=== PATIENT | female | born 1955 | race Asian ===

== ENCOUNTER 2024-05-23 10:46 | Outpatient (REF) | payer MEDICARE, SELFPAY ==
--- OUTSIDE RECORDS SUMMARY | 2024-05-23 12:54 | XMS_ITS | Clinical Summary ---
Author Organization [facility] Address [address] [place] [address] Care Team Providers Care Top Coater Name Role Phone Mary Escobedo MD Primary [...] Overview (03/31/2024): infiltrating carcinoma of right breast(T1cN0), ER/[place] positive HER-2/emmanuel negative, low-grade luminal A carcinoma [...] Surgery Date Site/Laterality Comments COLONOSCOPY 05/11/2012 PROCEDURE: [place] COLONOSCOPY FLX DX W/COLLJ SPEC WHEN PFRMD; [...] * Annual BMP Blood Test (12/19/2020) Pathologist [facility] Annual BMP Blood Test Abstracted Historical [...] should be classified as having osteoporosis. [facility] Department of Internal Medicine recommends using National [...] David should beclassified as having osteoporosis. [facility] Department of Internal Medicine recommendsusing National Osteoporosis [...] Resu lt * Hepatitis C Screening (11/29/2012) [facility] Hepatitis C Screening Abstracted Historical Provider HEALTH MAINTENANCE Final Result from Last 3 Months or Most Recently Relevant to Health Maintenance Care Teams Top Coater Relationship Specialty Start Date End Date Mary Escobedo MD [address] [place], [place] PCP - General Internal Medicine 12/15/21
[2024-05-23 13:54] LABS: Influenza A PCR POSITIVE (Negative); Influenza B PCR NEGATIVE (Negative); Resp Syncy Virus RNA Qual PCR NEGATIVE (Negative); SARS COV2 PCR INHOUSE NEGATIVE (Negative)
== END 2024-05-23 10:47 | disposition home or self-care (01) ==
LOC: HO.LAB 10:46
PROVIDERS: Physician Assistant; PCP Family Medicine
DX: J06.9 Acute upper respiratory infection, unspecified (principal)
CPT/HCPCS: 0241U; 99202

== ENCOUNTER 2024-05-23 10:46 | Outpatient (AMB) | payer MEDICARE, SELFPAY ==
--- NOTE | 2024-05-23 11:14 | MHC.OFFWIV ---
Intake Vital Signs 05/23/24 11:19 Weight 106 lb BP 150/100 H Blood Pressure Location Lt brachial Position Sitting Pulse 122 H Pulse Source Pulse Oximeter Temp 99.4 F Temp Source Oral Pulse Oximetry (%) 97 Oxygen Delivery Method Room Air Intake Visit Reasons: [employer]IEF Chills, Cough, Fever, Headache Intake Note: Patient here for cough, fever,SOB and headaches that has been present for about 3 days. Patient Tobacco Use Status: Never used Tobacco Allergies No Known Allergies Allergy (Verified 05/23/24 11:20) Do you need a note to return to daycare/school/sports/work: No HPI HPI Comments History of Present Illness Details History - The patient is a 68-year-old female presenting wiht her with fever and shortness of breath for three days. Has not checked with a thermometer but has felt warm. - She reports dizziness, headache, coughing, and sore throat associated with these symptoms. - The patient has a history of bacterial pneumonia one year ago with similar symptoms and a family history of pneumonia. - She denies personal or family hx of PE or DVT, denies any recent long flights, sedentary periods or active cancer. - Denies nausea, vomiting or diarrhea and has been eating, drinking. - Has not taken any OTC meds - Has a pulse oximeter at home Physical Exam General: Cooperative, healthy appearing, comfortable and no acute distress Orientation/consciousness: Patient oriented x3 Limitations: No limitations Head: Normal to inspection Ears: Hearing grossly normal bilaterally, external ears normal and TM's normal bilaterally Nose: Normal external nose present, Normal nares present and No nasal discharge present Face and sinus: Normal facial exam and Yes sinuses nontender Mouth: Normal oral and palatal mucosa present and moist mucous membranes Throat: Yes tonsils normal, Yes uvula midline. Posterior oropharynx erythema Eyes: Appearance normal, both eyes and all related structures Neck: Normal visual inspection Respiratory: Clear to auscultation bilaterally. Normal respiratory effort, able to speak in complete sentences, Actively coughing, no respiratory distress, not tachypneic, no tripod positioning and no use of accessory muscles Cardiovascular: Regular rate and rhythm. Skin: No rashes or lesions noted Neuro: Patient oriented x3 Extremities: Normal to inspection and Yes no clubbing, cyanosis or edema, negative Homans bilaterally Kyr[place]z video cook specialty foreign food available for this visit. PFS Social History Patient Tobacco Use Status: Never used Tobacco Review of Systems Const All systems reviewed & are unremarkable except as noted in HPI and below Physical Exam Vital Signs: Last Vital Signs Temp 99.4 F 05/23/24 11:19 Pulse 122 H 05/23/24 11:19 BP 150/100 H 05/23/24 11:19 Pulse Ox 97 05/23/24 11:19 Oxygen Delivery Method Room Air 05/23/24 11:19 Assessment & Plan Assessment & Plan (1) URI, acute: Code(s): J06.9 - Acute upper respiratory infection, unspecified Plan: The patient underwent laboratory testing for influenza, COVID-19, and RSV, with expectations to receive results within one to two days. The current evaluation leans toward a viral etiology due to symptomatology. To address dehydration and potential elevated heart rate, I stress increased fluid consumption, particularly focusing on electrolyte-enriched solutions. For fever and related tachycardia, acetaminophen is suggested. Recommended monitoring HR and if she increases her fluids and it does not lower to below 100BPM, she needs to go to the ED for further evaluation and IV fluids. Tessalon Perles are prescribed to alleviate nocturnal cough, and an inhaler is provided to assist with perceived dyspnea, acknowledging the patient's family asthma history. I recommend ongoing home monitoring of heart rate and emphasize the need for emergency evaluation if symptoms deteriorate or remain uncontrolled. I detail the limitations of Tamiflu's therapeutic window and prioritize addressing symptoms using [id number] methods unless test results indicate otherwise. Patient was informed and verbally consented to the use of an ambient scribe for clinic note documentation during this visit Orders: Orders SARS-CoV2/FLU/RSV Today J06.9 - Acute upper respiratory infection, unspecified Medications: New benzonatate 200 mg PO TID PRN 14 caps 0RF cough albuterol sulfate 90 mcg/actuation 2 puffs inhalation Q6H PRN 8.5 grams 0RF shortness of breath or wheezing or cough Coding Level of Care Code New Pt Level 4 (97239) Diagnoses URI, acute J06.9
[2024-05-23 11:19] VITALS: BP 150/100; PULSE 122; TEMP 37.4; O2SAT 97
--- OUTSIDE RECORDS SUMMARY | 2024-05-23 11:52 | XMS_ITS | Clinical Summary ---
[facility] Address [address] [place] [address] Care Team Providers Care Tie Puller Name Role Phone Mary Escobedo MD Primary Care Pr ovider Allergies No known active allergies Medications calcium carbonate-vitam in D3 600 mg-5 mcg (200 unit) per tablet Take 600 mg by mouth 2 times daily. 09/11/2011 Active losartan (COZAAR) 25 mg tablet Take 1.5 Tablets by mouth daily. 08/04/2021 Active Active Problems Problem Noted Date Diagnosed Date HTN (hypertension), benign 03/31/2024 Osteoporosis 03/31/2024 Overview (03/31/2024): T: -2.8 high risk, already on Fosamax Malignant neoplasm of right female breast 2015 Breast cancer 12/11/2013 Overview (03/31/2024): infiltrating carcinoma of right breast(T1cN0), ER/[place] positive HER-2/emmanuel negative, low-grade luminal A carcinoma so decision was made to go with radiation rather than adjuvant chemotherapy(patient was reluctant chemotherapy)- Dr. Wayne Advised 10 yr therapy starting 04/2014 Immunizations Name Administration Dates Next Due Influenza Quadravalent, MDCK , 0.5ml, preservative free (Flucelvax) 6mo and older 12/19/2020 Influenza Quadravalent, MDCK , 0.5ml, with preservative (Flucelvax) 6mo and older 01/20/2018,01/22/2017 Influenza trivalent, with preservative (Fluzone; Afluria) 6mo and older 03/09/2016,01/02/2015,01/31/2014,2012,01/15/2012 Tdap Tetanus diptheria acell ular pertussis (Boostrix; Adacel) 7yo and older 09/15/2011 Surgical History Surgery Date Site/Laterality Comments COLONOSCOPY 05/11/2012 PROCEDURE: [place] COLONOSCOPY FLX DX W/COLLJ SPEC WHEN PFRMD; COMMENT: normal BREAST BIOPSY PROCEDURE: BX BREAST; PERC NEEDLE CORE W/IMAG GUID; COMMENT: rt. breast bx.-12/17 ca BREAST LUMPECTOMY 2013 Right PROCEDURE: HISTORICAL BREAST LUMPECTOMY; COMMENT: right breast cancer Medical History Medical History Date Comments HTN (hypertension), benign DX:HT N (hypertension), benign Osteoporosis DX:Osteoporosis Breast cancer (CMS/HCC) 12/11/2013 DX:Breas t cancer (HCC) Family History Medical History Relation Name Comments Hypertension Mother Breast cancer Neg Hx Colon cancer Neg Hx Ovarian cancer Neg Hx Relation Name Status Comments Father Mother Alive Social History Tobacco Use Types Packs/Day Years Used Date Smoking Tobacco: Never Smokeless Tobacco: Never Alcohol Use Standard Drinks/Week Comments No 0 (1 standard drink = 0.6 oz pur e alcohol) Comments Unknown Sex and Gender Information Value Date Recorded Sex Assigned at Not on file Legal Sex Female 10:17 PM EST Gender Identity Not on file Sexual Orientation Not on file Obstetrics History Plan of Treatment Health Maintenance Due Date Last Done Comments COVID-19 Vaccine (#1) 1961 Pneumococcal Vaccine: 50+ Years (1 of 2 - PCV) 06/11/1975 Zoster Vaccines (1 of 2) 06/11/1975 DTaP,Tdap,and Td Vaccines (2 - Td or Tdap) 09/14/2021 09/15/2011 Colorectal Cancer Screening: Colonoscopy 03/14/2022 Depression Screening 03/14/2022 Falls Risk Assessment 03/14/2022 Hypertension/CHF/CAD Annual BMP Blood Test 03/14/2022 12/19/2020 Osteoporosis Screening (Bone Density Screening) 03/14/2022 11/17/2016 Social Influencers of Health Screening 03/14/2022 Breast Cancer Screening 10/24/2023 10/24/19, 10/23/2021, 10/17/2020, Additional history exists Influenza Vaccine (#1) 2023 , 01/20/2018, 01/22/2017, Additional history exists Cholesterol Screening (Lipid Panel) 05/28/2025 05/28/2020 RSV Immunization Patients 60+ Years Old (1 - 1-dose 75+ series) 06/11/2031 Hepatitis C Screening Completed 11/29/2012 HIB Vaccines Aged Out No longer eligi ble based on patient's age to complete this topic HPV Vaccines Aged Out No longer eligi ble based on patient's age to complete this topic Hepatitis A Vaccines Aged Out No long er eligible based on patient's age to complete this topic Hepatitis B Vaccines Aged Out No long er eligible based on patient's age to complete this topic IPV Vaccines Aged Out No longer eligi ble based on patient's age to complete this topic MMR Vaccines Aged Out No longer eligi ble based on patient's age to complete this topic Meningococcal ACWY Vaccine Aged Out N o longer eligible based on patient's age to complete this topic Meningococcal B Vacine Aged Out No lo nger eligible based on patient's age to complete this topic RSV Immunization Patients Under 20 months Aged Out No longer eligible based on patient's age to complete this topic Varicella Vaccines Aged Out No longer eligible based on patient's age to complete this topic Procedures Procedure Name Priority Date/Time Associated Diagnosis Comments SCREENING MAMMOGRAPHY BI 2-VIEW BREAST INC CAD Routine 10/23/2021 3:38 PM EDT Encounter for screening mammogram for malignant neoplasm of breast Personal history of malignant neoplasm of breast ANNUAL BMP BLOOD TEST Routine 12/19/2020 LIPID PANEL Routine 05/28/2020 DXA BONE DENSITY STUDY 1+ SITS AXIAL SKEL Routine 11/17/2016 1:40 PM EDT Age-related osteoporosis without current pathological fracture HEPATITIS C SCREENING Routine 11/29/2012 from Last 3 Months or Most Recently Relevant to Health Maintenance Results * SCREENING MAMMOGRAPHY BI 2-VIEW BREAST INC CAD (10/23/2021 3:38 PM EDT) Anatomical Region Laterality Modality Radiographic Izabela ging 10/17/2020 4:19 PM EDT Narrative 10/24/2021 3:35 PM EDT This is a summary report. The complete report is available in the patient's medical record. If you cannot access the medical record, please contact the sending organization for a detailed fax or copy. BILATERAL 2D and 3D DIGITAL SCREENING MAMMOGRAM History: Routine screening. ??No current breast complaints. Comparison: Multiple priors dating back to 10/10/2018 Technique: Bilateral full-field digital 2D and 3D mammography was performed using standard CC and MLO projections CAD was used to evaluate this mammogram. Findings: Density: ?? The breasts are heterogeneously dense which may obscure small masses-C RIGHT: No suspicious masses, groups of microcalcification or areas of architectural distortion identified. Stable typically benign parenchymal asymmetries LEFT: No suspicious masses, groups of microcalcifications or areas of architectural distortion identified. Stable typically benign parenchymal asymmetries IMPRESSION: : 1. ??No mammographic evidence of malignancy. BI-RADS Category 2 benign findings Recommendation: Routine annual screening mammography is recommended Procedure Note Leah Ambriz MD - 03/24/2022 This is a summary report. The complete report is available in thepatient's medical record. If you cannot access the medical record, pleasecontact the sending organization for a detailed fax or copy. BILATERAL 2D and 3D DIGITAL SCREENING MAMMOGRAM History: Routine screening. No current breast complaints. Comparison: Multiple priors dating back to 10/10/2018 Technique: Bilateral full-field digital 2D and 3D mammography wasperformed using standard CC and MLO projections CAD was used to evaluate this mammogram. Findings: Density: The breasts are heterogeneously dense which may obscure smallmasses-C RIGHT: No suspicious masses, groups of microcalcification or areas ofarchitectural distortion identified. Stable typically benign parenchymalasymmetries LEFT: No suspicious masses, groups of microcalcifications or areas ofarchitectural distortion identified. Stable typically benign parenchymalasymmetries IMPRESSION: : 1. No mammographic evidence of malignancy. BI-RADS Category 2 benign findings Recommendation: Routine annual screening mammography is recommended us Radiology Results Historical MD IMG XR PROCEDURE S Final Result * Annual BMP Blood Test (12/19/2020) Pathologist [facility] Annual BMP Blood Test Abstracted Historical Provider HEALTH MAINTENANCE Final Result * (ABNORMAL) Lipid panel (05/28/2020) LDL/HDL Ratio 3 0 - 4 Triglycerides 259(A) 0 - 150 mg/dL Cholesterol 200 0 - 200 mg/dL HDL 67 >=40 mg/dL LDL Cholesterol 82 0 - 100 mg/dL Blood Venous blood specimen / Unknown Historical Provider LAB BLOOD ORDERABLES Yesy l Result * DXA BONE DENSITY STUDY 1+ SITS AXIAL SKEL (11/17/2016 1:40 PM EDT) Anatomical Region Laterality Modality Bone Densitometr y 11/03/2016 3:20 PM EDT Narrative 11/17/2016 1:41 PM EDT BONE DENSITY ? Lumbar Spine T-score is -1.9 ?? (SD relative to 20-29 y/o adult) Z-score is -0.4 ??(SD relative to age matched peers) This is consistent with osteopenia by criteria defined by the WHO. Left Hip T-score is -3.3 Z-score is -2.0 This is consistent with osteoporosis by criteria defined by the WHO. Comparison exam(s): no statistically significant change in the bone density of the lumbar spine or hip when compared to most recent bone density examination ?? Confidence level is +/-95%. Impression: Based on the World Health Organization criteria, Mag David should be classified as having osteoporosis. The [facility] Department of Internal Medicine recommends using National Osteoporosis Foundation (NOF) guidelines in treatment decisions related to osteoporosis. NOF guidelines suggest considering treatment for postmenopausal women and men aged 50 or older presenting with the following: History of hip or vertebral fracture. T-score less than or equal to -2.5 (DXA) at the femoral neck, total hip, or spine, after appropriate evaluation to exclude secondary causes. Low bone mass (T-score between -1.0 and -2.5 at the femoral neck or spine) AND a 10-year probability of a hip fracture greater than or equal to 3% OR a 10-year probability of a major osteoporosis-related fracture greater than or equal to 20% based on the [place]-adapted WHO algorithm Please note that all treatment decisions require clinical judgment and consideration of individual patient factors, including patient preferences, co-morbidities, previous drug use, risk factors not captured in the FRAX model (e.g., frailty, falls, vitamin D deficiency, increased bone turnover, interval significant decline in bone density) and possible under- or over-estimation of fracture risk by FRAX. Procedure Note Ryan Jett MD - 05/07/2023 BONE DENSITY Lumbar Spine T-score is -1.9 (SD relative to 20-29 y/o adult) Z-score is -0.4 (SD relative to age matched peers) This is consistent with osteopenia by criteria defined by the WHO. Left Hip T-score is -3.3 Z-score is -2.0 This is consistent with osteoporosis by criteria defined by the WHO. Comparison exam(s): no statistically significant change in the bonedensity of the lumbar spine or hip when compared to most recent bonedensity examination Confidence level is +/-95%. Impression: Based on the World Health Organization criteria, Mag David should beclassified as having osteoporosis. The [facility] Department of Internal Medicine recommendsusing National Osteoporosis Foundation (NOF) guidelines in treatmentdecisions related to osteoporosis. NOF guidelines suggest consideringtreatment for postmenopausal women and men aged 50 or older presentingwith the following: History of hip or vertebral fracture. T-score less than or equal to -2.5 (DXA) at the femoral neck, total hip,or spine, after appropriate evaluation to exclude secondary causes. Low bone mass (T-score between -1.0 and -2.5 at the femoral neck or spine)AND a 10-year probability of a hip fracture greater than or equal to 3% ORa 10-year probability of a major osteoporosis-related fracture greaterthan or equal to 20% based on the [place]-adapted WHO algorithm Please note that all treatment decisions require clinical judgment andconsideration of individual patient factors, including patientpreferences, co-morbidities, previous drug use, risk factors not capturedin the FRAX model (e.g., frailty, falls, vitamin D deficiency, increasedbone turnover, interval significant decline in bone density) and possibleunder- or over-estimation of fracture risk by FRAX. Andre Hawthorne MD IMG DXA PROCEDURES Final Resu lt * Hepatitis C Screening (11/29/2012) [facility] Hepatitis C Screening Abstracted Historical Provider HEALTH MAINTENANCE Final Result from Last 3 Months or Most Recently Relevant to Health Maintenance Care Teams Tie Puller Relationship Specialty Start Date End Date Mary Escobedo MD [address] [place], [place] PCP - General Internal Medicine 12/15/21
== END 2024-05-23 11:45 | disposition home or self-care (01) ==
PROVIDERS: PCP Family Medicine; Visit Provider Physician Assistant
DX: J06.9 Acute upper respiratory infection, unspecified (principal)

== ENCOUNTER 2024-05-29 08:03 | Outpatient (AMB) | payer MEDICARE, SELFPAY ==
--- OUTSIDE RECORDS SUMMARY | 2024-05-29 08:07 | XMS_ITS | Encounter Summary ---
Author Organization [facility] Address [address] [place] [address] Care Team Providers Care Svp Research & Ebusiness Operations Name Role Phone Andre Hawthorne MD Primary Care Provider Mary Cisneros MD Primary Care Provider + Reason for Visit * Reason Onset Date Comments Testing 04/02/2017 CT chest Encounter Details Date Type Department Care Team Description 04/02/2017 Telephone Adult Medicine [address] [address] Alena Busby APRN Testing (CT chest) Social History Tobacco Use Types Packs/Day Years Used Date Smoking Tobacco: Never Smokeless Tobacco: Never Alcohol Use Standard Drinks/Week Comments No 0 (1 standard drink = 0.6 oz pur e alcohol) Sex Assigned at Date Recorded Not on file Job Start Date Occupation Industry Not on file Not on file Not on file documented as of this encounter Miscellaneous Notes * Telephone Encounter - Alena Busby APRN - 04/07/2017 1:33 PM EST Called [employer] and spoke with physician reviewer, advised them that a nodular density was seen on the CXR and he advised me they would fax approval for the imaging to our office- he did not have an authorization code to provide me over the phone * Telephone Encounter - Gracie Hernandez - 04/02/2017 5:06 PM EST All clinicals were sent to [facility] with the request. In order to change the denial a peer to peer must be done. * Telephone Encounter - Alena QiSKYLAR christie - 04/02/2017 10:21 AM EST A chest xray was ordered and was abnormal. Can you please advise if [facility] was aware that this imaging was already done. Thank you. * Telephone Encounter - Irvin Gotti - 04/02/2017 8:54 AM EST Insurance denied CT. States based on [facility] Chest Imaging Guidelines, we are unable to approve therequested procedure. Guidelines support a chest x-ray in the initial evaluation of non-cardiac chest pain. If results of the initial chest x-ray are normal, a detailed assessment for the evaluation of other possible causes of pain is supported prior to computed tomography (CT) of the chest with contrast (CPT?? 15547) or CT Angiography (CTA) chest with contrast (CPT?? 37120). This assessment wouldinclude: 1) cardiac (ECG, echocardiogram, stress test), 2) gastrointestinal (trial of anti-reflux medication, possible upper endoscopy, pH probe, esophageal manometry), and 3) pulmonary (PFT???s). The clinical information does not meet these criteria and, therefore, the requested advanced imaging of the chest is not indicated at this time. For peer to peer reconsideration, please call option #4, case # is [id number]. Pleaseadvise, thank you. Prior Irvin Auth Dept./[employer] Photo Inspector [phone] documented in this encounter Plan of Treatment Not on file documented as of this encounter Visit Diagnoses Not on filedocumented in this encounter Care Teams Svp Research [employer] Ebusiness Operations Relationship Specialty Start Date End Date Andre Hawthorne MD PCP - General Internal Medicine 09/04/15 12/14/21 Mary Escobedo MD [address] [place] [id number] PCP - General Internal Medicine 12/15/21 documented as of this encounter
--- OUTSIDE RECORDS SUMMARY | 2024-05-29 08:07 | XMS_ITS | Encounter Summary ---
Author Organization [facility] Address [address] [place] [address] Care Team Providers Care Engineering Supplies Sales Name Role Phone Andre Hawthorne MD Primary Care Provider Dakota Leger MD Primary Care Provider Unavail able Andre Hawthorne MD Primary Care Provider Mary Cisneros MD Primary Care Provider + Encounter Details Date Type Department Care Team Description 04/12/2014 Instructional Technology Director Report Medical Records [address] [place] [address] Sheryl Gardner Social History Tobacco Use Types Packs/Day Years Used Date Smoking Tobacco: Never Alcohol Use Standard Drinks/Week Comments No 0 (1 standard drink = 0.6 oz pur e alcohol) Sex Assigned at Date Recorded Not on file Job Start Date Occupation Industry Not on file Not on file Not on file documented as of this encounter Plan of Treatment Not on file documented as of this encounter Visit Diagnoses Not on filedocumented in this encounter Care Teams Engineering Supplies Sales Relationship Specialty Start Date End Date Andre Hawthorne MD PCP - General Internal Medicine 07/23/11 07/02/15 Dakota Carbone MD PCP - General Internal Medicine 07/03/15 09/03/15 Andre Hawthorne MD PCP - General Internal Medicine 09/04/15 12/14/21 Mary Escobedo MD [address] [place] [address] PCP - General Internal Medicine 12/15/21 documented as of this encounter
--- OUTSIDE RECORDS SUMMARY | 2024-05-29 08:07 | XMS_ITS | Encounter Summary ---
Author Organization [facility] Address [address] [place] [address] Care Team Providers Care Levers Lace Machine Operator Name Role Phone Andre Hawthorne MD Primary Care Provider Dakota Leger MD Primary Care Provider Unavail able Andre Hawthorne MD Primary Care Provider Mary Cisneros MD Primary Care Provider + Encounter Details Date Type Department Care Team Description 10/11/2014 Anesthesia Associate Report Medical Records [address] [place] [address] Sheryl Gardner Social History Tobacco Use Types [...] on filedocumented in this encounter Care Teams Levers Lace Machine Operator Relationship Specialty Start Date End Date Andre Hawthorne MD PCP - General Internal Medicine 07/23/11 07/02/15 Dakota Carbone MD PCP - General Internal Medicine 07/03/15 09/03/15 Andre Hawthorne MD PCP - General Internal Medicine 09/04/15 12/14/21 Mary Escobedo MD [address] [place] [address] PCP - General Internal Medicine 12/15/21 documented as of this encounter
--- OUTSIDE RECORDS SUMMARY | 2024-05-29 08:07 | XMS_ITS | Encounter Summary ---
Author Organization [facility] Address [address] [place] [address] Care Team Providers Care Promotions Manager Name Role Phone Andre Hawthorne MD Primary Care Provider Mary Cisneros MD Primary Care Provider + Encounter Details Date Type Department Care Team Description 08/19/2020 Telephone Cardio PVCA Diag Testing [address] [place] [id number] Andre Hawthorne MD Social History Tobacco Use Types Packs/Day Years Used Date Smoking Tobacco: Never Smokeless Tobacco: Never Alcohol Use Standard Drinks/Week Comments No 0 (1 standard drink = 0.6 oz pur e alcohol) Sex Assigned at Date Recorded Not on file Job Start Date Occupation Industry Not on file Not on file Not on file COVID-19 Exposure Response Date Recorded In the last month, have you been in contact with someone who was confirmed or suspected to have Coronavirus / COVID-19? No / Unsure 08/01/2020 3:36 PM EDT documented as of this encounter Miscellaneous Notes * Telephone Encounter - Andre Hawthorne - 08/19/2020 1:05 PM EDT Stress ECHO ordered * Telephone Encounter - Andria Valdez - 08/19/2020 12:31 PM EDT [facility] has received the order for [place] to have an Exercise Stress Test. However, one of our APPs has reviewed the information and has recommended that there be imaging along with this test. They have recommended a STRESS ECHOCARDIOGRAM instead of the ETT. If you are in agreement, please place a new order for scheduling. Thank you! documented in this encounter Plan of Treatment Not on file documented as of this encounter Results * STRESS ECHOCARDIOGRAM WITH CONTRAST IF CLINICALLY INDICATED (10/01/2020) Andre Hawthorne MD CARDIOLOGY PVCA documented in this encounter Visit Diagnoses Diagnosis Chest pain, unspecified type- Primary documented in this encounter Care Teams Promotions Manager Relationship Specialty Start Date End Date Andre Hawthorne MD PCP - General Internal Medicine 09/04/15 12/14/21 Mary Escobedo MD [address] [place] [id number] PCP - General Internal Medicine 12/15/21 documented as of this encounter
--- OUTSIDE RECORDS SUMMARY | 2024-05-29 08:07 | XMS_ITS | Clinical Summary ---
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 [facility] Department of Internal Medicine recommends using [...] David should beclassified as having osteoporosis. The [facility] Department of Internal Medicine recommendsusing National [...] Resu lt * Hepatitis C Screening (11/29/2012) [facility] Hepatitis C Screening Abstracted Historical Provider HEALTH MAINTENANCE Final Result from Last 3 Months or Most Recently Relevant to Health Maintenance Care Teams Critical Care Specialist Relationship Specialty Start Date End Date Mary Escobedo MD [address] [place], [place] PCP - General Internal Medicine 12/15/21
--- OUTSIDE RECORDS SUMMARY | 2024-05-29 08:07 | XMS_ITS | Encounter Summary ---
Author Organization [facility] Address [address] [place] [address] Care Team Providers Care Java Xml Developer Name Role Phone Andre Hawthorne MD Primary Care Provider Dakota Leger MD Primary Care Provider Unavail [facility] Andre Hawthorne MD Primary Care Provider Mary Cisneros MD Primary Care Provider + Encounter Details Date Type Department Care Team Description 12/27/2013 Hospital Medical Records [address] [place] [id number] Everton Vanegas MD [address] [place] [id number] Social History Tobacco Use Types Packs/Day Years [...] on filedocumented in this encounter Care Teams Java Xml Developer Relationship Specialty Start Date End Date Andre Hawthorne MD PCP - General Internal Medicine 07/23/11 07/02/15 Dakota Carbone MD PCP - General Internal Medicine 07/03/15 09/03/15 Andre Hawthorne MD PCP - General Internal Medicine 09/04/15 12/14/21 Mary Escobedo MD [address] [place] [id number] PCP - General Internal Medicine 12/15/21 documented as of this encounter
--- OUTSIDE RECORDS SUMMARY | 2024-05-29 08:07 | XMS_ITS | Encounter Summary ---
Author Organization [facility] Address [address] [place] [address] Care Team Providers Care Strategic Development Manager Name Role Phone Andre Hawthorne MD Primary Care Provider Mary Cisneros MD Primary Care Provider + Encounter Details Date Type Department Care Team Description 03/31/2016 Corn Cutter Operator Report Medical Records [address] [place], [place] [id number] [place] [address] Social History Tobacco Use Types Packs/Day Years [...] on filedocumented in this encounter Care Teams Strategic Development Manager Relationship Specialty Start Date End Date Andre Hawthorne MD PCP - General Internal Medicine 09/04/15 12/14/21 Mary Escobedo MD [address] [place] [address] PCP - General Internal Medicine 12/15/21 documented as of this encounter
--- OUTSIDE RECORDS SUMMARY | 2024-05-29 08:07 | XMS_ITS | Encounter Summary ---
Author Organization [facility] Address [address] [place] [address] Care Team Providers Care Needle Process Felt Goods Supervisor Name Role Phone Andre Hawthorne MD Primary Care Provider Mary Cisneros MD Primary Care Provider + Reason for Referral * EXTERNAL (Routine) - Authorized/Booked Specialty Diagnoses / Procedures Referred By Sly tejada Referred To Contact Vascular Surgery Procedures REFERRAL TO VASCULAR SURGERY Andre Hawthorne MD [address] [place] [address] Gabriel Randhawa MD [address] [facility] [address] [place] [id number] Referral ID Status Reason Start Date Expiration Date V isits Requested Visits Authorized SEE NOTE Authorized/B ooked 03/20/2016 06/19/2016 1 1 Reason for Visit * Reason Onset Date Comments Creping Machine Operator Feedback 03/19/2016 Dr. Hatfield vascula r surgery Encounter Details Date Type Department Care Team Description 03/19/2016 Telephone Adult Medicine [address] [address] Andre Hawthorne MD Creping Machine Operator Feedback (Dr. Hatfield vascular surgery) Social History Tobacco Use Types Packs/Day Years [...] encounter Miscellaneous Notes * Telephone Encounter - Effie Busby - 03/20/2016 4:14 PM EST Attempted to reach patient to let her know but got no answer. * Telephone Encounter - Andre Hawthorne - 03/20/2016 8:19 AM EST Please let pt know that her insurance is not accepted at Dr. Hatfield's office. She wanted to see him because of language difficulty * Telephone Encounter - Effie Busby - 03/19/2016 4:[address] Hawthorne, You recently placed a vascular surgery referral for patient to be seen by Dr. Hatfield for varicose veins with poor circulation . Unfortunately, Dr. Hatfield at [facility] does not take patients insurance so we can not refer her there. I have pended a new referral. Please review and sign. Thank you, Effie Referrals Department documented in this encounter Plan of Treatment Not on file documented as of this encounter Visit Diagnoses Not on filedocumented in this encounter Care Teams Needle Process Felt Goods Supervisor Relationship Specialty Start Date End Date Andre Hawthorne MD PCP - General Internal Medicine 09/04/15 12/14/21 Mary Escobedo MD [address] [place] [address] PCP - General Internal Medicine 12/15/21 documented as of this encounter
--- OUTSIDE RECORDS SUMMARY | 2024-05-29 08:07 | XMS_ITS | Encounter Summary ---
Author Organization [facility] Address [address] [place] [address] Care Team Providers Care Air Duct Mechanic Name Role Phone Andre Hawthorne MD Primary Care Provider Dakota Leger MD Primary Care Provider Unavail [facility] Andre Hawthorne MD Primary Care Provider Mary Cisneros MD Primary Care Provider + Reason for Visit * Reason Onset Date Comments refill request 05/28/2015 Encounter Details Date Type Department Care Team Description 05/28/2015 Refill Oncology [address] [place] [address] Maia Pa MD refill request Social History Tobacco Use Types Packs/Day Years [...] encounter Miscellaneous Notes * Telephone Encounter - Lizeth Doll - 05/28/2015 4:19 PM EST Patient is requesting more than 3 refills with this script. Please review. Patient would like script to be: E-PRESCRIBED/FAXED TO PHARMACY WHEN WAS THE PATIENT'S LAST APPOINTMENT IN ADULT MEDICINE? 01/02/15 WHEN WAS THE LAST TIME THE PATIENT SAW THEIR PCP? 05/01/15 Does patient have an upcoming appointment? Yes 07/03/15 (THE MEDICATION REQUESTED IS ON THE MED LIST ABOVE) All of the medications requested were on the CURRENT MEDS list Did you check the Pharmacy information above?: YES Patient wants: 30 -day supply Is this a mail order prescription request ? NO Patients current insurance carrier is: Payor: [employer] [facility] / Plan: [facility] TYPE 1 $0 [employer] [id number] / Product Type: HMO [id number] documented in this encounter Plan of Treatment Not on file documented as of this encounter Visit Diagnoses Not on filedocumented in this encounter Care Teams Air Duct Mechanic Relationship Specialty Start Date End Date Andre Hawthorne MD PCP - General Internal Medicine 07/23/11 07/02/15 Dakota Carbone MD PCP - General Internal Medicine 07/03/15 09/03/15 Andre Hawthorne MD PCP - General Internal Medicine 09/04/15 12/14/21 Mary Escobedo MD [address] [place] [id number] PCP - General Internal Medicine 12/15/21 documented as of this encounter
--- OUTSIDE RECORDS SUMMARY | 2024-05-29 08:07 | XMS_ITS | Encounter Summary ---
Author Organization [facility] Address [address] [place] [address] Care Team Providers Care Client Sales And Service Officer Name Role Phone Andre Hawthorne MD Primary Care Provider Mary Cisneros MD Primary Care Provider + Encounter Details Date Type Department Care Team Description 12/14/2016 Candy Cooker Helper Report Medical Records [address] [place] [id number] Joshua David Social History Tobacco Use Types Packs/Day Years [...] on filedocumented in this encounter Care Teams Client Sales And Service Officer Relationship Specialty Start Date End Date Andre Hawthorne MD PCP - General Internal Medicine 09/04/15 12/14/21 Mary Escobedo MD [address] [place] [address] PCP - General Internal Medicine 12/15/21 documented as of this encounter
--- NOTE | 2024-05-29 08:14 | AM.OFFWIN_ITS ---
Intake Vital Signs 05/29/24 08:15 Weight 107 lb BP 130/90 H Blood Pressure Location Rt brachial Position Sitting Pulse 86 Pulse Source Pulse Oximeter Temp 98.7 F Temp Source Oral Pulse Oximetry (%) 97 Oxygen Delivery Method Room Air Intake Visit Reasons: EP flu symptoms worse Intake Note: Patient here for headaches and SOB that has worsened since she was last seen Patient Tobacco Use Status: Never used Tobacco Allergies No Known Allergies Allergy (Verified 05/29/24 08:18) Do you need a note to return to daycare/school/sports/work: No HPI HPI Comments History of Present Illness Details History - The patient is a 68-year-old female pr esenting with worsening symptoms associated with influenza A and possible bacterial pneumonia. - Initially diagnosed with influenza A o n 05/23 in this clinic with a recent progression that includes increased phlegm production, rhonchial cough, and difficulty breathing. - Similar episodes occurred about one an d a half years ago when treated for bacterial pneumonia with Keflex. She is asking for antibiotics. - Reports a significant family history o f bacterial pneumonia, noting her father succumbed to related complications. - Continues to experience persistent low -grade fever despite the use of Tylenol for relief. - Describes generalized body pain and re duced energy as ongoing concerns. Physical Exam General: Cooperative, healthy appearing, comfortable and no acute distress Orientation/consciousness: Patient oriented x3 Limitations: No limitations Head: Normal to inspection Ears: Hearing grossly normal bilaterally, external ears normal Nose: Normal external nose present, Normal nares present and No nasal discharge present Face and sinus: Normal facial exam and Yes sinuses nontender Mouth: Normal oral and palatal mucosa present and moist mucous membranes Throat: Yes tonsils normal, Yes uvula midline. Posterior oropharynx erythema Eyes: Appearance normal, both eyes and all related structures Neck: Normal visual inspection Respiratory: Clear to auscultation bilaterally. Normal respiratory effort, able to speak in complete sentences, Actively coughing, no respiratory distress, not tachypneic, no tripod positioning and no use of accessory muscles Cardiovascular: Regular rate and rhythm. Normal S1 and S2 Skin: No rashes or lesions noted Neuro: Patient oriented x3 Extremities: Normal to inspection and Yes no clubbing, cyanosis or edema PFSH Social History Patient Tobacco Use Status: Never used Tobacco Review of Systems Const All systems reviewed & are unremarkable except as noted in HPI and below Physical Exam Vital Signs: Last Vital Signs Temp 98.7 F 05/29/24 08:15 Pulse 86 05/29/24 08:15 BP 130/90 H 05/29/24 08:15 Pulse Ox 97 05/29/24 08:15 Oxygen Delivery Method Room Air 05/29/24 08:15 Assessment & Plan Assessment & Plan (1) CAP (community acquired pneumonia): Code(s): J18.9 - Pneumonia, unspecified organism Qualifiers: Laterality: unspecified laterality Qualified Code(s): J18.9 - Pneumonia, unspecified organism Plan: The patient is advised supportive measures for influenza symptoms, including adequate hydration, rest, and fever management with Tylenol to alleviate discomfort. For suspected bacterial pneumonia, commence treatment with presc ribed Doxycycline for a duration of seven days. Additional recommendations include increased fluid intake, rest, and avoiding exacerbation factors to support recovery while monitoring symptom changes. Medications: New doxycycline hyclate 100 mg PO BID 14 tabs 0RF Coding Level of Care Code New Pt Level 3 (75646) Diagnoses Community acquired pneumonia, unspecified laterality J18.9 Laterality: unspecified laterality
[2024-05-29 08:15] VITALS: BP 130/90; PULSE 86; TEMP 37.1; O2SAT 97
== END 2024-05-29 08:59 | disposition home or self-care (01) ==
PROVIDERS: PCP Family Medicine; Visit Provider Physician Assistant
DX: J18.9 Pneumonia, unspecified organism (principal)

== ENCOUNTER → 2024-05-29 08:03 | Outpatient (BNVA) | payer MEDICARE, SELFPAY | PROVIDERS: PCP Family Medicine | DX: J18.9 Pneumonia, unspecified organism (principal) | CPT/HCPCS: 99212 ==